=== PATIENT | female | born 1980 | race Caucasian/White ===

== ENCOUNTER → 2017-02-27 | Outpatient (CLI) | payer OTHER ==
[~2017-02-27] MED LIST: DESYREL50 MG PO; FLEXERIL10 M1 PO; NORCO 5/325 TAB1 TAB PO
--- NOTE | ~2017-02-27 | US5 ---
[facility] A Service of [facility] RADIOLOGY TEXT RESULTS PATIENT: BABAR WBESTER LOCATION: SGUS : 80 UNIT #: [id number] AGE: [address]: Artis Driscoll MD SEX: F ORDER DR: [id number] [place] [id number] O MR#: [id number] Acc #: [id number] NAME: BABAR WEBSTER : 1980 SEX: F STUDY DATE/TIME: 02/27/2017 10:09 UNIT: SGUS ROOM: STUDY DESCRIPTION: US Abdominal Complete Attending Physician: Artis Driscoll M.D. Referring Physician: Artis Driscoll M.D. Ordering Physician: Artis Driscoll M.D. Primary Care Physician: Artis Driscoll M.D. MEDICAL IMAGING REPORT This report is preliminary unless electronic signature is present. EXAM Abdominal ultrasound INDICATIONS Generalized abdominal pain for the past 3 weeks. PROCEDURE Foreman-scale and Doppler imaging of the abdomen. COMPARISON None FINDINGS Visualized portions of the pancreas unremarkable. Liver measures 13.7 cm. No liver mass seen on submitted images. Unremarkable gallbladder, common duct measures 5 mm. Right kidney measures 11.2 cm. Submitted images abdominal aorta inferior vena cava unremarkable. Left kidney measures 10.2 cm. No hydronephrosis. The spleen measures 8.3 cm. IMPRESSION 1. Common duct is mildly prominent for the patient's age. Correlate with laboratory values. 2. Otherwise negative abdominal ultrasound Dictated by... Javy Kamara M.D. THIS IS AN ELECTRONICALLY VERIFIED REPORT Javy Kamara M.D. at 02/28/2017 2:39 PM EED/rnr TD: 02/27/2017 15:02 [facility] A Service of [facility] RADIOLOGY TEXT RESULTS PATIENT: BABAR WEBSTER LOCATION: [facility] : [birth year] UNIT #: [id number] AGE: [address]: Artis Driscoll MD SEX: F ORDER DR: JOB #: [id number] MEDICAL IMAGING REPORT Page 1 of 1
== END | disposition home or self-care (01) ==
LOC: SGUS 09:03
DX: R10.9 Unspecified abdominal pain (principal)
CPT/HCPCS: 76700